=== PATIENT | male | born 1955 | race Native Hawaiian/Other Pacific Islander ===

== ENCOUNTER 2016-08-17 13:00 | Outpatient (CLI) | payer BC ==
[~2016-08-17 13:00] MED LIST: BENZONATATE200 MG PO; COZAAR100 MG PO; GLUCOVANCE1 TA2 PO; LANTUS SOLOSTAR SC; NIASPAN1000 ER PO; VICTOZA18 MG/3 ML SC; Z-PAK PO
== END 2016-08-17 14:30 | disposition home or self-care (01) ==
LOC: RESP 13:00
DX: R06.02 Shortness of breath (principal); R01.1 Cardiac murmur, unspecified
CPT/HCPCS: 93306

== ENCOUNTER 2016-09-16 07:48 | Outpatient (CLI) | payer BC | END 2016-09-16 10:00 | disposition home or self-care (01) | LOC: NM 07:48 | DX: E10.9 Type 1 diabetes mellitus without complications (principal); I10 Essential (primary) hypertension | CPT/HCPCS: A9500 ==

== ENCOUNTER 2017-01-06 08:01 | Outpatient (CLI) | payer BC | END 2017-01-06 09:30 | disposition home or self-care (01) | LOC: CT 08:01 | DX: R10.84 Generalized abdominal pain (principal) | CPT/HCPCS: 36415; 82565; 84520; Q9963 ==

== ENCOUNTER 2017-03-16 11:41 | Day surgery (SDC) | payer BC ==
[2017-03-16 12:36] LABS: PLATELET COUNT 420 K/uL (142-355)
[2017-03-16 12:51] LABS: POTASSIUM 3.9 mmol/L (3.6-5.2); SODIUM 135 mmol/L (136-145)
== END 2017-03-16 15:00 | disposition home or self-care (01) ==
LOC: OR 11:41
PROVIDERS: Internal Medicine Gastroenterology
PROC: 0DBK8ZZ Excision of Ascending Colon, Via Natural or Artificial Opening Endoscopic (ICD-10-PCS; principal; 2017-03-16)
PROC: 0DBP8ZZ Excision of Rectum, Via Natural or Artificial Opening Endoscopic (ICD-10-PCS; 2017-03-16)
PROC: 0DBH8ZZ Excision of Cecum, Via Natural or Artificial Opening Endoscopic (ICD-10-PCS; 2017-03-16)
DX: K63.5 Polyp of colon (principal); D12.2 Benign neoplasm of ascending colon; D12.0 Benign neoplasm of cecum; K62.1 Rectal polyp; K64.8 Other hemorrhoids; Z80.0 Family history of malignant neoplasm of digestive organs; Z12.11 Encounter for screening for malignant neoplasm of colon
CPT/HCPCS: 80053; 85027; J2001; J2250; J2704; J3010

== ENCOUNTER 2017-09-09 13:03 | Outpatient (CLI) | payer BC | END 2017-09-09 19:16 | disposition home or self-care (01) | LOC: CT 13:03 | DX: R26.81 Unsteadiness on feet (principal) ==

== ENCOUNTER 2017-10-03 14:28 | Outpatient (CLI) | payer BC ==
[2017-10-03 16:36] LABS: PLATELET COUNT 436 K/uL (142-355)
== END 2017-10-03 22:03 | disposition home or self-care (01) ==
LOC: MRI 14:28
PROVIDERS: Psychiatry & Neurology Neurology
DX: G60.8 Other hereditary and idiopathic neuropathies (principal); H53.2 Diplopia; R79.89 Other specified abnormal findings of blood chemistry
CPT/HCPCS: 36415; 82607; 82728; 82746; 82784; 82785; 83540; 83550; 84165; 85027; 85044; 85651; 86039; 86140; 86430

== ENCOUNTER 2017-12-06 09:04 | Outpatient (CLI) | payer BC ==
[2017-12-06 10:46] LABS: POTASSIUM 4.2 mmol/L (3.6-5.2)
== END 2017-12-06 23:00 | disposition home or self-care (01) ==
LOC: LABW 09:04
PROVIDERS: Internal Medicine Endocrinology, Diabetes & Metabolism
DX: E78.1 Pure hyperglyceridemia (principal)
CPT/HCPCS: 36415; 80053; 80061; 82550; 84439; 84443

== ENCOUNTER 2018-02-08 09:11 | Outpatient (CLI) | payer BC ==
[2018-02-08 09:47] LABS: POTASSIUM 4.1 mmol/L (3.6-5.2)
== END 2018-02-08 21:13 | disposition home or self-care (01) ==
LOC: LABW 09:11
PROVIDERS: Internal Medicine Endocrinology, Diabetes & Metabolism
DX: E78.1 Pure hyperglyceridemia (principal); E11.65 Type 2 diabetes mellitus with hyperglycemia
CPT/HCPCS: 36415; 80053; 80061; 82550; 83036

== ENCOUNTER 2018-06-08 08:39 | Outpatient (CLI) | payer BC ==
[2018-06-08 09:22] LABS: POTASSIUM 4.2 mmol/L (3.6-5.2)
== END 2018-06-08 19:14 | disposition home or self-care (01) ==
LOC: LABW 08:39
PROVIDERS: Internal Medicine Endocrinology, Diabetes & Metabolism
DX: E78.1 Pure hyperglyceridemia (principal); E11.65 Type 2 diabetes mellitus with hyperglycemia
CPT/HCPCS: 36415; 80053; 80061; 82550; 83036

== ENCOUNTER 2018-12-08 08:58 | Outpatient (CLI) | payer BC ==
[2018-12-08 09:37] LABS: POTASSIUM 4.3 mmol/L (3.6-5.2)
== END 2018-12-08 22:03 | disposition home or self-care (01) ==
LOC: LAB 08:58
PROVIDERS: Internal Medicine Endocrinology, Diabetes & Metabolism
DX: E78.1 Pure hyperglyceridemia (principal); E11.65 Type 2 diabetes mellitus with hyperglycemia
CPT/HCPCS: 36415; 80053; 80061; 82550; 83036

== ENCOUNTER 2019-01-17 07:56 | Outpatient (CLI) | payer BC | END 2019-01-17 21:15 | disposition home or self-care (01) | LOC: CT 07:56 | DX: R22.1 Localized swelling, mass and lump, neck (principal) | CPT/HCPCS: 36415; 82565; 84520; Q9963 ==

== ENCOUNTER 2019-03-12 09:07 | Outpatient (CLI) | payer BC ==
[2019-03-12 09:37] LABS: POTASSIUM 4.2 mmol/L (3.6-5.2)
== END 2019-03-12 22:32 | disposition home or self-care (01) ==
LOC: LABW 09:07
PROVIDERS: Internal Medicine Endocrinology, Diabetes & Metabolism
DX: E78.1 Pure hyperglyceridemia (principal)
CPT/HCPCS: 36415; 80053; 80061; 82550

== ENCOUNTER 2019-06-18 08:34 | Outpatient (CLI) | payer BC | END 2019-06-18 22:37 | disposition home or self-care (01) | LOC: LABW 08:34 | PROVIDERS: Internal Medicine Endocrinology, Diabetes & Metabolism | DX: E78.1 Pure hyperglyceridemia (principal); E11.9 Type 2 diabetes mellitus without complications | CPT/HCPCS: 36415; 80053; 80061; 82550; 83036 ==

== ENCOUNTER 2019-10-24 07:38 | Outpatient (CLI) | payer BC ==
[2019-10-24 09:23] LABS: POTASSIUM 4.3 mmol/L (3.6-5.2)
[2019-10-24 10:02] LABS: PLATELET COUNT 334 K/uL (142-355)
== END 2019-10-24 21:25 | disposition home or self-care (01) ==
LOC: LABW 07:38
PROVIDERS: Internal Medicine Endocrinology, Diabetes & Metabolism
DX: I10 Essential (primary) hypertension (principal); E78.1 Pure hyperglyceridemia; E11.65 Type 2 diabetes mellitus with hyperglycemia
CPT/HCPCS: 36415; 80053; 80061; 82550; 83036; 85027

== ENCOUNTER 2020-01-07 12:57 | Outpatient (CLI) | payer BC, OTHER | END 2020-01-07 23:29 | disposition home or self-care (01) | LOC: LAB 12:57 | DX: U07.1 COVID-19 (principal); Z20.828 Contact with and (suspected) exposure to other viral communicable diseases | CPT/HCPCS: 87635; G2023; U0003 ==

== ENCOUNTER 2020-02-26 08:31 | Outpatient (CLI) | payer BC ==
[2020-02-26 09:07] LABS: POTASSIUM 4.4 mmol/L (3.6-5.2)
== END 2020-02-26 19:08 | disposition home or self-care (01) ==
LOC: LABW 08:31
PROVIDERS: ATTEND Internal Medicine Endocrinology, Diabetes & Metabolism
DX: E11.65 Type 2 diabetes mellitus with hyperglycemia (principal); E78.1 Pure hyperglyceridemia
CPT/HCPCS: 36415; 80053; 80061; 83036

== ENCOUNTER 2020-03-31 11:15 | Outpatient (CLI) | payer BC | END 2020-03-31 19:04 | disposition home or self-care (01) | LOC: LABW 11:15 | PROVIDERS: ATTEND Internal Medicine | DX: Z01.84 Encounter for antibody response examination (principal) | CPT/HCPCS: 36415; 86769 ==

== ENCOUNTER 2020-06-02 07:35 | Outpatient (CLI) | payer BC ==
[2020-06-02 08:18] LABS: POTASSIUM 4.2 mmol/L (3.6-5.2)
== END 2020-06-02 21:32 | disposition home or self-care (01) ==
LOC: LABW 07:35
PROVIDERS: ATTEND Internal Medicine Endocrinology, Diabetes & Metabolism
DX: E11.65 Type 2 diabetes mellitus with hyperglycemia (principal); E78.1 Pure hyperglyceridemia
CPT/HCPCS: 36415; 80053; 80061; 83036

== ENCOUNTER 2020-10-07 09:44 | Outpatient (CLI) | payer BC ==
[2020-10-07 10:13] LABS: POTASSIUM 4.2 mmol/L (3.6-5.2)
== END 2020-10-07 19:19 | disposition home or self-care (01) ==
LOC: LABW 09:44
PROVIDERS: ATTEND Internal Medicine Endocrinology, Diabetes & Metabolism
DX: E11.65 Type 2 diabetes mellitus with hyperglycemia (principal); E78.1 Pure hyperglyceridemia
CPT/HCPCS: 36415; 80053; 80061; 83036

== ENCOUNTER 2020-10-29 09:44 | Outpatient (CLI) | payer BC | END 2020-10-29 19:07 | disposition home or self-care (01) | LOC: LABW 09:44 | PROVIDERS: ATTEND Internal Medicine | DX: E11.9 Type 2 diabetes mellitus without complications (principal) | CPT/HCPCS: 81000; 82043; 82570 ==

== ENCOUNTER 2021-02-10 09:35 | Outpatient (CLI) | payer BC ==
[2021-02-10 10:25] LABS: POTASSIUM 3.9 mmol/L (3.6-5.2)
== END 2021-02-10 18:57 | disposition home or self-care (01) ==
LOC: LABW 09:35
PROVIDERS: ATTEND Internal Medicine Endocrinology, Diabetes & Metabolism
DX: E11.65 Type 2 diabetes mellitus with hyperglycemia (principal); E78.1 Pure hyperglyceridemia
CPT/HCPCS: 36415; 80053; 80061; 83036

== ENCOUNTER 2021-05-28 10:38 | Outpatient (CLI) | payer BC | END 2021-05-28 20:00 | disposition home or self-care (01) | LOC: RAD 10:38 | PROVIDERS: ATTEND Internal Medicine | DX: J40 Bronchitis, not specified as acute or chronic (principal) ==

== ENCOUNTER 2021-06-09 08:54 | Outpatient (CLI) | payer BC ==
[2021-06-09 09:39] LABS: POTASSIUM 4.1 mmol/L (3.6-5.2)
== END 2021-06-09 18:59 | disposition home or self-care (01) ==
LOC: LABW 08:54
PROVIDERS: ATTEND Internal Medicine Endocrinology, Diabetes & Metabolism
DX: E11.65 Type 2 diabetes mellitus with hyperglycemia (principal); E78.2 Mixed hyperlipidemia
CPT/HCPCS: 36415; 80053; 80061; 82043; 83036

== ENCOUNTER 2021-09-30 08:32 | Outpatient (CLI) | payer BC ==
[2021-09-30 09:09] LABS: POTASSIUM 3.9 mmol/L (3.6-5.2)
== END 2021-09-30 19:17 | disposition home or self-care (01) ==
LOC: LABW 08:32
PROVIDERS: ATTEND Internal Medicine Endocrinology, Diabetes & Metabolism
DX: E11.65 Type 2 diabetes mellitus with hyperglycemia (principal)
CPT/HCPCS: 36415; 80053; 83036

== ENCOUNTER 2022-02-01 08:51 | Outpatient (CLI) | payer BC ==
[2022-02-01 09:33] LABS: POTASSIUM 4.2 mmol/L (3.6-5.2)
== END 2022-02-01 19:35 | disposition home or self-care (01) ==
LOC: LABW 08:51
PROVIDERS: ATTEND Internal Medicine Endocrinology, Diabetes & Metabolism
DX: E11.9 Type 2 diabetes mellitus without complications (principal); E78.1 Pure hyperglyceridemia
CPT/HCPCS: 36415; 80053; 80061; 83036

== ENCOUNTER 2022-06-07 08:16 | Outpatient (CLI) | payer OTHER, MEDICARE | END 2022-06-07 19:35 | disposition home or self-care (01) | LOC: LABW 08:16 | PROVIDERS: ATTEND Internal Medicine Endocrinology, Diabetes & Metabolism | DX: E11.9 Type 2 diabetes mellitus without complications (principal); E78.1 Pure hyperglyceridemia | CPT/HCPCS: 36415; 80053; 80061; 83036 ==

== ENCOUNTER 2022-10-27 09:30 | Outpatient (CLI) | payer OTHER, MEDICARE ==
[2022-10-27 10:16] LABS: POTASSIUM 4.3 mmol/L (3.6-5.2)
== END 2022-10-27 21:19 | disposition home or self-care (01) ==
LOC: LABW 09:30
PROVIDERS: ATTEND Internal Medicine Endocrinology, Diabetes & Metabolism
DX: E78.1 Pure hyperglyceridemia (principal); E11.65 Type 2 diabetes mellitus with hyperglycemia
CPT/HCPCS: 36415; 80053; 80061; 83036